=== PATIENT | male | born 1960 | race Caucasian/White ===

== ENCOUNTER 2023-03-11 23:18 | Inpatient (IN) | payer OTHER ==
[2023-03-12] MEDS ORDERED: Acetaminophen 325 MG TAB PO PRN (00:57)
[2023-03-12] MEDS ORDERED: Sodium Chloride 0.9% 1,000 ML IV SCH (01:00)
[2023-03-12 01:01] VITALS: BMI 22.6
[2023-03-12] MEDS ORDERED: Promethazine HCl 25 MG/ML VIAL IM PRN ×2 (01:18→23:42)
[2023-03-12] MEDS ORDERED: Benzocaine 20% Spray 60 ML CAN PO SCH (01:30)
[2023-03-12] MEDS: Nicotine 14 MG PATCH TD SCH ×2 (01:59)
[2023-03-12] MEDS: Ketorolac Tromethamine 30 MG/ML VIAL IVP PRN ×2 (01:59→14:42)
[2023-03-12] MEDS: Lactated Ringer's 1,000 ML IV SCH ×3 (01:59→18:08)
[2023-03-12] MEDS ORDERED: Morphine 2 MG/ML VIAL SLOW IVP SCH (03:00)
[2023-03-12 06:35] LABS: #Neutrophils 7.3 thou/uL (1.40-6.50); %Basophils 0.2 % (0.0-1.0); %Eosinophils 0.3 % (0.0-10.0); %Lymphocytes 17.4 % (21.0-51.0); %Monocytes 9.7 % (0.0-10.0); %Neutrophils 72.1 % (42.0-75.0); Hemoglobin 13.7 g/dL (14.0-18.0); Mean Corpuscular HGB CONC 33.7 g/dL (32.0-36.0); Mean Corpuscular Volume 88.8 fl (78.0-98.0); Mean Platelet Volume 9.7 fL (7.4-10.4); Platelet Count 211 10x3/uL (130-400); RBC Distribution Width 13.9 % (11.5-14.5); Red Blood Cell (RBC) Count 4.57 mill/uL (4.70-6.10); White Blood Cell (WBC) Count 10.1 10x3/uL (4.8-10.8)
[2023-03-12 07:31] LABS: ALT (SGPT) 9 U/L (8-55); AST (SGOT) 12 U/L (5-34); Albumin 3.9 g/dL (3.4-4.8); Alkaline Phosphatase 57 U/L (40-110); Anion Gap 15 mmol/L (10-20); BUN (Urea Nitrogen) 20 mg/dL (8.4-25.7); Bilirubin, Total 0.6 mg/dL (0.2-1.2); Calc. Creatinine Clearance 90 mL/min (70-130); Calcium 9.2 mg/dL (7.8-10.44); Carbon Dioxide 23 mmol/L (23-31); Chloride 104 mmol/L (98-107); Estimated GFR 88; Globulin 2.1 g/dL (2.4-3.5); Glucose 92 mg/dL (80-115); HIV (1/2) Antibody/Antigen Non-Reactive (NonReactive); HIV 1/2 INDEX 0.14 S/CO (<1.00); Hep C IgG Ab Non-Reactive S/CO (NonReactive); Hep C Index 0.07 S/CO (0-0.79); Potassium 3.9 mmol/L (3.5-5.1); Sodium 138 mmol/L (136-145)
[2023-03-12] MEDS: Pantoprazole 40 MG VIAL IVP SCH (09:01)
[2023-03-12] MEDS ORDERED: GoLYTELY 4,000 ml Bottle PO SCH (12:00)
[2023-03-12] MEDS ORDERED: fentaNYL 50 mcg/mL 1 mL Vial SLOW IVP SCH (18:00)
[2023-03-12] MEDS ORDERED: Morphine 2 MG/ML VIAL SLOW IVP PRN (20:57)
[2023-03-12] MEDS ORDERED: Piperacillin/Tazobactam 3.375 GM VIAL ONE (20:58)
[2023-03-12] MEDS ORDERED: Sodium Chloride 0.9% 100 ML ONE (20:59)
[2023-03-12] MEDS ORDERED: Fentanyl 250 MCG/5 ML VIAL ONE (21:03)
[2023-03-12] MEDS ORDERED: SUGAMMADEX SODIUM 200 MG/2 ML VIAL ONE (21:04)
[2023-03-12] MEDS ORDERED: Phenylephrine 10 MG/ML VIAL ONE (21:04)
[2023-03-12] MEDS ORDERED: Rocuronium Bromide 10 MG/ML (10ML VIAL) ONE (21:09)
[2023-03-12] MEDS ORDERED: Lidocaine 1% PF 5 ML VIAL ONE (21:09)
[2023-03-12] MEDS ORDERED: Dexamethasone 20 MG/5 ML VIAL ONE (21:09)
[2023-03-12] MEDS ORDERED: PROPOFOL 200 MG/20 ML VIAL ONE (21:09)
[2023-03-12] MEDS ORDERED: PHENYLEPHRINE-NS 100 MCG/ML 10 ML SYRINGE ONE (21:09)
[2023-03-12] MEDS ORDERED: Ondansetron PF 4 MG/2 ML Vial ONE (21:09)
[2023-03-12] MEDS ORDERED: HYDROmorphone 2 MG/ML VIAL SLOW IVP PRN (23:42)
[2023-03-12] MEDS ORDERED: PACU-Morphine 4MG/ML VIAL SLOW IVP PRN (23:42)
[2023-03-12] MEDS ORDERED: Ondansetron HCl/PF 4 MG/2 ML Vial IVP PRN (23:42)
[2023-03-12] MEDS ORDERED: fentaNYL 50 mcg/mL 1 mL Vial ONE (23:44)
[2023-03-12] MEDS ORDERED: Communication Order-Pharmacy FS SCH (23:45)
[2023-03-12] MEDS ORDERED: diphenhydrAMINE 50 MG/ML VIAL IM PRN (23:46)
[2023-03-12] MEDS ORDERED: Naloxone HCl 0.4 mg/ml Vial IV PRN (23:46)
[2023-03-12] MEDS ORDERED: diphenhydrAMINE 50 MG/ML VIAL IVP PRN (23:46)
[2023-03-12] MEDS ORDERED: diphenhydrAMINE 25 MG CAP PO PRN (23:46)
[2023-03-13] MEDS ORDERED: fentaNYL 50 mcg/mL 1 mL Vial ONE (00:06)
[2023-03-13] MEDS ORDERED: HYDROmorphone 0.5 MG/0.5 ML SYRINGE ONE ×3 (00:20→01:02)
[2023-03-13] MEDS: Nicotine 14 MG PATCH TD SCH (01:53)
[2023-03-13] MEDS: Lactated Ringer's 1,000 ML IV SCH ×5 (04:43→20:43)
[2023-03-13 08:22] LABS: #Neutrophils 12.7 thou/uL (1.40-6.50); %Basophils 0.1 % (0.0-1.0); %Lymphocytes 4.2 % (21.0-51.0); %Monocytes 7.1 % (0.0-10.0); %Neutrophils 88.3 % (42.0-75.0); Hemoglobin 13.6 g/dL (14.0-18.0); Mean Corpuscular HGB CONC 33.9 g/dL (32.0-36.0); Mean Corpuscular Hemoglobin 30.7 pg (27.0-31.0); Mean Corpuscular Volume 90.5 fl (78.0-98.0); Mean Platelet Volume 10.5 fL (7.4-10.4); Platelet Count 229 10x3/uL (130-400); Red Blood Cell (RBC) Count 4.43 mill/uL (4.70-6.10); White Blood Cell (WBC) Count 14.4 10x3/uL (4.8-10.8)
[2023-03-13] MEDS ORDERED: Lactated Ringer's 1,000 ML IV SCH (08:45)
[2023-03-13 08:49] LABS: ALT (SGPT) 8 U/L (8-55); AST (SGOT) 16 U/L (5-34); Albumin 3.5 g/dL (3.4-4.8); Alkaline Phosphatase 47 U/L (40-110); Anion Gap 19 mmol/L (10-20); BUN (Urea Nitrogen) 20 mg/dL (8.4-25.7); Bilirubin, Total 0.5 mg/dL (0.2-1.2); Calc. Creatinine Clearance 104 mL/min (70-130); Calcium 8.7 mg/dL (7.8-10.44); Carbon Dioxide 22 mmol/L (23-31); Chloride 104 mmol/L (98-107); Estimated GFR 98; Globulin 1.9 g/dL (2.4-3.5); Glucose 114 mg/dL (80-115); Potassium 4.3 mmol/L (3.5-5.1); Protein, Total 5.4 g/dL (5.8-8.1); Sodium 141 mmol/L (136-145)
[2023-03-13] MEDS: Pantoprazole 40 MG VIAL IVP SCH (09:58)
[2023-03-13] MEDS: HYDROmorphone 10 mg/100 ml CADD IVPB PRN (23:27)
[2023-03-14] MEDS: Nicotine 14 MG PATCH TD SCH (02:33)
[2023-03-14 06:11] LABS: #Neutrophils 8.9 thou/uL (1.40-6.50); %Basophils 0.2 % (0.0-1.0); %Eosinophils 0.2 % (0.0-10.0); %Lymphocytes 9.6 % (21.0-51.0); %Monocytes 8.9 % (0.0-10.0); %Neutrophils 80.6 % (42.0-75.0); Hemoglobin 13.8 g/dL (14.0-18.0); Mean Corpuscular HGB CONC 32.5 g/dL (32.0-36.0); Mean Corpuscular Hemoglobin 30.1 pg (27.0-31.0); Mean Corpuscular Volume 92.6 fl (78.0-98.0); Mean Platelet Volume 10.1 fL (7.4-10.4); Platelet Count 204 10x3/uL (130-400); RBC Distribution Width 14.3 % (11.5-14.5); Red Blood Cell (RBC) Count 4.59 mill/uL (4.70-6.10); White Blood Cell (WBC) Count 11.1 10x3/uL (4.8-10.8)
[2023-03-14 06:37] LABS: ALT (SGPT) 12 U/L (8-55); AST (SGOT) 25 U/L (5-34); Albumin 3.5 g/dL (3.4-4.8); Alkaline Phosphatase 46 U/L (40-110); Anion Gap 13 mmol/L (10-20); BUN (Urea Nitrogen) 15 mg/dL (8.4-25.7); Bilirubin, Total 0.6 mg/dL (0.2-1.2); Calc. Creatinine Clearance 111 mL/min (70-130); Carbon Dioxide 27 mmol/L (23-31); Chloride 103 mmol/L (98-107); Estimated GFR 100; Globulin 2.3 g/dL (2.4-3.5); Glucose 127 mg/dL (80-115); Potassium 4.4 mmol/L (3.5-5.1); Protein, Total 5.8 g/dL (5.8-8.1); Sodium 139 mmol/L (136-145)
[2023-03-14] MEDS: Pantoprazole 40 MG VIAL IVP SCH (08:42)
[2023-03-14] MEDS ORDERED: Bisacodyl 10 MG SUPP PR PRN (10:38)
[2023-03-14] MEDS ORDERED: Furosemide 40 MG/4 ML VIAL SLOW IVP SCH (11:30)
[2023-03-14 12:05] LABS: Magnesium 1.9 mg/dL (1.6-2.6); Phosphorus 2.1 mg/dL (2.3-4.7)
[2023-03-14] MEDS ORDERED: Sodium Phosphate 30 MMOL in Sodium Chloride 0.9% 250 ML 250 ML IVPB SCH (12:30)
[2023-03-14] MEDS ORDERED: Magnesium 2 GM/50 ML(in water) 2 GM in Premix Bag 1 BAG IVPB SCH (12:30)
[2023-03-14] MEDS: HYDROmorphone 10 mg/100 ml CADD IVPB PRN (20:35)
[2023-03-15] MEDS: Nicotine 14 MG PATCH TD SCH (00:50)
[2023-03-15 06:22] LABS: #Monocytes 0.9 thou/uL (0.11-0.59); #Neutrophils 11.5 thou/uL (1.40-6.50); %Basophils 0.2 % (0.0-1.0); %Eosinophils 0.2 % (0.0-10.0); %Lymphocytes 4.7 % (21.0-51.0); %Monocytes 7.1 % (0.0-10.0); %Neutrophils 87.5 % (42.0-75.0); Hemoglobin 14.8 g/dL (14.0-18.0); Mean Corpuscular HGB CONC 32.7 g/dL (32.0-36.0); Mean Corpuscular Hemoglobin 30.1 pg (27.0-31.0); Mean Corpuscular Volume 92.3 fl (78.0-98.0); Platelet Count 244 10x3/uL (130-400); RBC Distribution Width 14.1 % (11.5-14.5); Red Blood Cell (RBC) Count 4.91 mill/uL (4.70-6.10); White Blood Cell (WBC) Count 13.1 10x3/uL (4.8-10.8)
[2023-03-15 06:47] LABS: ALT (SGPT) 14 U/L (8-55); AST (SGOT) 23 U/L (5-34); Albumin 3.5 g/dL (3.4-4.8); Alkaline Phosphatase 54 U/L (40-110); Anion Gap 19 mmol/L (10-20); BUN (Urea Nitrogen) 15 mg/dL (8.4-25.7); Bilirubin, Total 0.5 mg/dL (0.2-1.2); Calc. Creatinine Clearance 93 mL/min (70-130); Carbon Dioxide 25 mmol/L (23-31); Chloride 97 mmol/L (98-107); Estimated GFR 92; Globulin 2.8 g/dL (2.4-3.5); Glucose 127 mg/dL (80-115); Potassium 4.2 mmol/L (3.5-5.1); Protein, Total 6.3 g/dL (5.8-8.1); Sodium 137 mmol/L (136-145)
[2023-03-15] MEDS: Pantoprazole 40 MG VIAL IVP SCH (08:41)
[2023-03-15] MEDS: D5 1/2 NS w/20 mEq KCL 1,000 ML IV SCH (13:13)
[2023-03-15] MEDS: HYDROmorphone 10 mg/100 ml CADD IVPB PRN (22:22)
[2023-03-16] MEDS: D5 1/2 NS w/20 mEq KCL 1,000 ML IV SCH ×2 (03:37→09:03)
[2023-03-16] MEDS: Nicotine 14 MG PATCH TD SCH ×2 (03:38→23:07)
[2023-03-16 06:52] LABS: #Eosinphils 0.1 thou/uL (0.0-0.7); #Monocytes 0.8 thou/uL (0.11-0.59); #Neutrophils 8.8 thou/uL (1.40-6.50); %Basophils 0.1 % (0.0-1.0); %Eosinophils 1.1 % (0.0-10.0); %Lymphocytes 7.2 % (21.0-51.0); %Monocytes 7.4 % (0.0-10.0); %Neutrophils 83.9 % (42.0-75.0); Hemoglobin 12.6 g/dL (14.0-18.0); Mean Corpuscular Hemoglobin 30.1 pg (27.0-31.0); Mean Corpuscular Volume 91.4 fl (78.0-98.0); Mean Platelet Volume 10.3 fL (7.4-10.4); Platelet Count 238 10x3/uL (130-400); Red Blood Cell (RBC) Count 4.18 mill/uL (4.70-6.10); White Blood Cell (WBC) Count 10.5 10x3/uL (4.8-10.8)
[2023-03-16 07:19] LABS: ALT (SGPT) 11 U/L (8-55); AST (SGOT) 13 U/L (5-34); Albumin 3.1 g/dL (3.4-4.8); Alkaline Phosphatase 47 U/L (40-110); Anion Gap 15 mmol/L (10-20); BUN (Urea Nitrogen) 16 mg/dL (8.4-25.7); Bilirubin, Total 0.5 mg/dL (0.2-1.2); Calc. Creatinine Clearance 115 mL/min (70-130); Calcium 8.8 mg/dL (7.8-10.44); Carbon Dioxide 28 mmol/L (23-31); Chloride 98 mmol/L (98-107); Estimated GFR 101; Globulin 2.3 g/dL (2.4-3.5); Glucose 128 mg/dL (80-115); Potassium 4.1 mmol/L (3.5-5.1); Protein, Total 5.4 g/dL (5.8-8.1); Sodium 137 mmol/L (136-145)
[2023-03-16] MEDS: Pantoprazole 40 MG VIAL IVP SCH (08:47)
[2023-03-16] MEDS: Ondansetron PF 4 MG/2 ML Vial IVP PRN (08:54)
[2023-03-16] MEDS: HYDROmorphone 10 mg/100 ml CADD IVPB PRN (22:51)
[2023-03-17] MEDS: Ondansetron PF 4 MG/2 ML Vial IVP PRN ×3 (00:16→14:44)
[2023-03-17] MEDS: D5 1/2 NS w/20 mEq KCL 1,000 ML IV SCH ×3 (03:00→19:10)
[2023-03-17 06:17] LABS: #Eosinphils 0.4 thou/uL (0.0-0.7); #Monocytes 0.8 thou/uL (0.11-0.59); #Neutrophils 5.3 thou/uL (1.40-6.50); %Basophils 0.1 % (0.0-1.0); %Lymphocytes 13.1 % (21.0-51.0); %Monocytes 10.6 % (0.0-10.0); %Neutrophils 70.9 % (42.0-75.0); Hemoglobin 11.6 g/dL (14.0-18.0); Mean Corpuscular HGB CONC 32.9 g/dL (32.0-36.0); Mean Corpuscular Hemoglobin 30.4 pg (27.0-31.0); Mean Corpuscular Volume 92.7 fl (78.0-98.0); Mean Platelet Volume 9.4 fL (7.4-10.4); Platelet Count 227 10x3/uL (130-400); RBC Distribution Width 14.3 % (11.5-14.5); Red Blood Cell (RBC) Count 3.81 mill/uL (4.70-6.10); White Blood Cell (WBC) Count 7.5 10x3/uL (4.8-10.8)
[2023-03-17 06:43] LABS: ALT (SGPT) 11 U/L (8-55); AST (SGOT) 10 U/L (5-34); Albumin 3.1 g/dL (3.4-4.8); Alkaline Phosphatase 41 U/L (40-110); Anion Gap 14 mmol/L (10-20); BUN (Urea Nitrogen) 13 mg/dL (8.4-25.7); Bilirubin, Total 0.4 mg/dL (0.2-1.2); Calc. Creatinine Clearance 114 mL/min (70-130); Carbon Dioxide 28 mmol/L (23-31); Chloride 98 mmol/L (98-107); Estimated GFR 100; Globulin 2.4 g/dL (2.4-3.5); Glucose 109 mg/dL (80-115); Potassium 3.9 mmol/L (3.5-5.1); Protein, Total 5.5 g/dL (5.8-8.1); Sodium 136 mmol/L (136-145)
[2023-03-17] MEDS: Pantoprazole 40 MG VIAL IVP SCH (08:11)
[2023-03-17] MEDS: Ketorolac Tromethamine 30 MG/ML VIAL IVP SCH ×2 (12:05→18:44)
[2023-03-17] MEDS: HYDROmorphone 10 mg/100 ml CADD IVPB PRN (19:09)
[2023-03-18] MEDS: Ketorolac Tromethamine 30 MG/ML VIAL IVP SCH ×5 (00:25→22:25)
[2023-03-18] MEDS: Nicotine 14 MG PATCH TD SCH (04:15)
[2023-03-18] MEDS: D5 1/2 NS w/20 mEq KCL 1,000 ML IV SCH ×2 (04:20→17:22)
[2023-03-18 06:20] LABS: #Eosinphils 0.3 thou/uL (0.0-0.7); #Monocytes 0.8 thou/uL (0.11-0.59); #Neutrophils 4.5 thou/uL (1.40-6.50); %Basophils 0.3 % (0.0-1.0); %Eosinophils 4.3 % (0.0-10.0); %Lymphocytes 12.9 % (21.0-51.0); %Monocytes 12.2 % (0.0-10.0); %Neutrophils 69.8 % (42.0-75.0); Hemoglobin 10.9 g/dL (14.0-18.0); Mean Corpuscular HGB CONC 32.3 g/dL (32.0-36.0); Mean Corpuscular Hemoglobin 29.6 pg (27.0-31.0); Mean Corpuscular Volume 91.6 fl (78.0-98.0); Platelet Count 233 10x3/uL (130-400); Red Blood Cell (RBC) Count 3.68 mill/uL (4.70-6.10); White Blood Cell (WBC) Count 6.5 10x3/uL (4.8-10.8)
[2023-03-18 06:45] LABS: ALT (SGPT) 10 U/L (8-55); AST (SGOT) 11 U/L (5-34); Albumin 2.9 g/dL (3.4-4.8); Alkaline Phosphatase 39 U/L (40-110); Anion Gap 12 mmol/L (10-20); BUN (Urea Nitrogen) 16 mg/dL (8.4-25.7); Bilirubin, Total 0.5 mg/dL (0.2-1.2); Calc. Creatinine Clearance 109 mL/min (70-130); Calcium 8.9 mg/dL (7.8-10.44); Carbon Dioxide 29 mmol/L (23-31); Chloride 100 mmol/L (98-107); Estimated GFR 99; Globulin 2.1 g/dL (2.4-3.5); Glucose 101 mg/dL (80-115); Potassium 4.2 mmol/L (3.5-5.1); Sodium 137 mmol/L (136-145)
[2023-03-18] MEDS: Pantoprazole 40 MG VIAL IVP SCH (09:06)
[2023-03-18] MEDS ORDERED: PHOS-NAK 1 PKT PACK PO SCH (10:30)
[2023-03-18] MEDS: Acetaminophen 500 MG TAB PO SCH ×2 (13:00→18:30)
[2023-03-18] MEDS: traMADol HCl 50 MG TAB PO SCH ×2 (13:01→18:30)
[2023-03-18] MEDS: PHOS-NAK 1 PKT PACK PO SCH ×2 (18:26→22:13)
[2023-03-18] MEDS: Melatonin 3 MG TAB PO SCH (22:13)
[2023-03-18] MEDS: traMADol HCl 50 MG TAB PO PRN (22:14)
[2023-03-19] MEDS: Nicotine 14 MG PATCH TD SCH (01:47)
[2023-03-19] MEDS: Ketorolac Tromethamine 30 MG/ML VIAL IVP SCH ×4 (03:39→22:30)
[2023-03-19] MEDS: Acetaminophen 500 MG TAB PO SCH ×4 (03:39→17:00)
[2023-03-19] MEDS: traMADol HCl 50 MG TAB PO SCH ×2 (03:39)
[2023-03-19] MEDS: traMADol HCl 50 MG TAB PO PRN ×2 (03:40→09:04)
[2023-03-19] MEDS: Pantoprazole 40 MG VIAL IVP SCH (09:05)
[2023-03-19] MEDS: Polyethylene Glycol 3350 17 GM Packet PO SCH (09:06)
[2023-03-19] MEDS ORDERED: Iopamidol-370 76% 500 ML MDV (1 ML CHARGE) ONE (15:27)
[2023-03-19] MEDS: Melatonin 3 MG TAB PO SCH (20:35)
[2023-03-19] MEDS: Ondansetron PF 4 MG/2 ML Vial IVP PRN (22:20)
[2023-03-20] MEDS: Acetaminophen 500 MG TAB PO SCH ×4 (00:13→17:53)
[2023-03-20] MEDS: traMADol HCl 50 MG TAB PO PRN (02:43)
[2023-03-20] MEDS: Nicotine 14 MG PATCH TD SCH (02:44)
[2023-03-20] MEDS ORDERED: Dicyclomine 20 MG TAB PO SCH (04:23)
[2023-03-20] MEDS: Ketorolac Tromethamine 30 MG/ML VIAL IVP SCH ×2 (05:35→12:47)
[2023-03-20] MEDS: Ondansetron PF 4 MG/2 ML Vial IVP PRN ×2 (05:38→21:34)
[2023-03-20] MEDS: Pantoprazole 40 MG VIAL IVP SCH (09:04)
[2023-03-20] MEDS: Polyethylene Glycol 3350 17 GM Packet PO SCH (09:04)
[2023-03-20] MEDS: D5 1/2 NS w/20 mEq KCL 1,000 ML IV SCH ×2 (09:04→21:23)
[2023-03-20] MEDS ORDERED: Benzocaine 20% Spray 60 ML CAN PO SCH (09:06)
[2023-03-20] MEDS ORDERED: Lidocaine Jelly 2% Urojet 10 ML I-URETHRAL SCH (09:15)
[2023-03-20] MEDS ORDERED: Midazolam HCl 2 mg/2 ml Vial SLOW IVP PRN (09:48)
[2023-03-20 10:48] LABS: Hemoglobin 13.3 g/dL (14.0-18.0); Mean Corpuscular HGB CONC 32.7 g/dL (32.0-36.0); Mean Corpuscular Hemoglobin 29.8 pg (27.0-31.0); Mean Corpuscular Volume 91.3 fl (78.0-98.0); Mean Platelet Volume 9.7 fL (7.4-10.4); Platelet Count 379 10x3/uL (130-400); RBC Distribution Width 13.9 % (11.5-14.5); Red Blood Cell (RBC) Count 4.46 mill/uL (4.70-6.10); White Blood Cell (WBC) Count 8.4 10x3/uL (4.8-10.8)
[2023-03-20 10:53] LABS: Delete Auto Diff?? YES; Manual Diff?? YES
[2023-03-20 11:14] LABS: ALT (SGPT) 26 U/L (8-55); AST (SGOT) 19 U/L (5-34); Albumin 3.4 g/dL (3.4-4.8); Alkaline Phosphatase 72 U/L (40-110); Anion Gap 21 mmol/L (10-20); BUN (Urea Nitrogen) 22 mg/dL (8.4-25.7); Bilirubin, Total 0.6 mg/dL (0.2-1.2); Calc. Creatinine Clearance 102 mL/min (70-130); Calcium 9.2 mg/dL (7.8-10.44); Carbon Dioxide 21 mmol/L (23-31); Chloride 98 mmol/L (98-107); Estimated GFR 97; Globulin 2.8 g/dL (2.4-3.5); Glucose 105 mg/dL (80-115); Potassium 4.3 mmol/L (3.5-5.1); Protein, Total 6.2 g/dL (5.8-8.1); Sodium 136 mmol/L (136-145)
[2023-03-20 12:09] LABS: Band 55 % (5-11); CellaVision Operator ID LAB.GE; Large Platelets 5.8 % (0-5); Lymphocytes 6 % (21-51); Metamyelocyte 6 % (0-0); Monocytes 9 % (0-10); Neutrophil 20 % (42-75); Platelet Adequacy Comment Platelets Normal; Polychromasia SLIGHT = 2-3 cells HPF (0-2); Reactive Lymphocytes 3 % (0-10); Total Cell Count 103
[2023-03-20] MEDS ORDERED: Ketorolac Tromethamine 30 MG/ML VIAL IVP PRN (17:29)
[2023-03-20] MEDS: Melatonin 3 MG TAB PO SCH (21:23)
[2023-03-21] MEDS: Morphine 2 MG/ML VIAL SLOW IVP PRN (01:53)
[2023-03-21] MEDS ORDERED: Promethazine HCl 25 MG in Sodium Chloride 0.9% 50 ML IVPB PRN (02:12)
[2023-03-21] MEDS: Nicotine 14 MG PATCH TD SCH (02:17)
[2023-03-21] MEDS: Acetaminophen 500 MG TAB PO SCH ×5 (02:17→23:55)
[2023-03-21] MEDS: Polyethylene Glycol 3350 17 GM Packet PO SCH (08:20)
[2023-03-21] MEDS: DRY MOUTH SPRAY PO SCH ×3 (08:21→18:03)
[2023-03-21] MEDS: Tamsulosin HCl 0.4 MG CAP PO SCH (08:22)
[2023-03-21] MEDS: Pantoprazole 40 MG VIAL IVP SCH (08:22)
[2023-03-21] MEDS: D5 1/2 NS w/20 mEq KCL 1,000 ML IV SCH ×2 (08:22→12:40)
[2023-03-21] MEDS: Morphine 4 MG/ML VIAL SLOW IVP PRN ×3 (08:23→18:03)
[2023-03-21 08:33] LABS: Hemoglobin 12.6 g/dL (14.0-18.0); Mean Corpuscular HGB CONC 34.8 g/dL (32.0-36.0); Mean Corpuscular Hemoglobin 30.2 pg (27.0-31.0); Mean Platelet Volume 9.8 fL (7.4-10.4); Platelet Count 323 10x3/uL (130-400); RBC Distribution Width 13.9 % (11.5-14.5); Red Blood Cell (RBC) Count 4.17 mill/uL (4.70-6.10); White Blood Cell (WBC) Count 7.6 10x3/uL (4.8-10.8)
[2023-03-21 08:35] LABS: Delete Auto Diff?? YES; Manual Diff?? YES; Mean Corpuscular Volume 86.8 fl (78.0-98.0)
[2023-03-21 08:51] LABS: Anion Gap 15 mmol/L (10-20); BUN (Urea Nitrogen) 21 mg/dL (8.4-25.7); Calc. Creatinine Clearance 105 mL/min (70-130); Calcium 8.5 mg/dL (7.8-10.44); Carbon Dioxide 27 mmol/L (23-31); Chloride 97 mmol/L (98-107); Estimated GFR 98; Glucose 124 mg/dL (80-115); Magnesium 1.7 mg/dL (1.6-2.6); Phosphorus 2.2 mg/dL (2.3-4.7); Sodium 135 mmol/L (136-145)
[2023-03-21 09:04] LABS: Band 54 % (5-11); CellaVision Operator ID LAB.GE; Dohle Bodies SLIGHT; Eosinophils 4 % (0-10); Lymphocytes 8 % (21-51); Macrocytosis SLIGHT = 6-15 cells HPF (0-5); Metamyelocyte 1 % (0-0); Monocytes 8 % (0-10); Neutrophil 23 % (42-75); Platelet Adequacy Comment Platelets Normal; Polychromasia SLIGHT = 2-3 cells HPF (0-2); Reactive Lymphocytes 2 % (0-10); Total Cell Count 100; Vacuoles SLIGHT
[2023-03-21] MEDS ORDERED: Potassium Phosphate 9 MMOL in Sodium Chloride 0.9% 100 ML IVPB SCH (10:00)
[2023-03-21] MEDS ORDERED: Potassium Phosphate 30 MMOL in Sodium Chloride 0.9% 250 ML 250 ML IVPB SCH (19:30)
[2023-03-21] MEDS ORDERED: Magnesium 2 GM/50 ML(in water) 2 GM in Premix Bag 1 BAG IVPB SCH (19:30)
[2023-03-21] MEDS: Melatonin 3 MG TAB PO SCH (21:15)
[2023-03-22] MEDS: D5 1/2 NS w/20 mEq KCL 1,000 ML IV SCH ×3 (00:05→22:18)
[2023-03-22] MEDS: Morphine 4 MG/ML VIAL SLOW IVP PRN ×2 (03:23→20:50)
[2023-03-22] MEDS: Nicotine 14 MG PATCH TD SCH (05:21)
[2023-03-22 06:13] LABS: #Basophils 0.1 thou/uL (0.0-0.2); #Eosinphils 0.2 thou/uL (0.0-0.7); #Monocytes 1.1 thou/uL (0.11-0.59); #Neutrophils 7.2 thou/uL (1.40-6.50); %Basophils 0.5 % (0.0-1.0); %Eosinophils 2.1 % (0.0-10.0); %Lymphocytes 10.1 % (21.0-51.0); %Monocytes 11.6 % (0.0-10.0); %Neutrophils 74.8 % (42.0-75.0); Hemoglobin 12.3 g/dL (14.0-18.0); Mean Corpuscular HGB CONC 32.8 g/dL (32.0-36.0); Mean Corpuscular Hemoglobin 29.4 pg (27.0-31.0); Mean Platelet Volume 9.7 fL (7.4-10.4); Platelet Count 349 10x3/uL (130-400); RBC Distribution Width 14.1 % (11.5-14.5); Red Blood Cell (RBC) Count 4.19 mill/uL (4.70-6.10); White Blood Cell (WBC) Count 9.7 10x3/uL (4.8-10.8)
[2023-03-22] MEDS: Ondansetron PF 4 MG/2 ML Vial IVP PRN (06:19)
[2023-03-22] MEDS: DRY MOUTH SPRAY PO SCH ×5 (06:21→20:46)
[2023-03-22 06:27] LABS: Manual Diff?? YES; Mean Corpuscular Volume 89.5 fl (78.0-98.0)
[2023-03-22 06:40] LABS: Anion Gap 13 mmol/L (10-20); BUN (Urea Nitrogen) 12 mg/dL (8.4-25.7); Calc. Creatinine Clearance 114 mL/min (70-130); Calcium 8.4 mg/dL (7.8-10.44); Carbon Dioxide 28 mmol/L (23-31); Chloride 100 mmol/L (98-107); Estimated GFR 100; Glucose 103 mg/dL (80-115); Magnesium 2.3 mg/dL (1.6-2.6); Phosphorus 3.4 mg/dL (2.3-4.7); Potassium 4.3 mmol/L (3.5-5.1); Sodium 137 mmol/L (136-145)
[2023-03-22] MEDS: Acetaminophen 500 MG TAB PO SCH ×3 (07:49→12:14)
[2023-03-22 08:09] LABS: Anisocytosis SLIGHT = 6-15 cells HPF (0-5); Burr Cells SLIGHT = 2-5 cells HPF (0-1); CellaVision Operator ID LAB.NR; Eosinophils 4 % (0-10); Lymphocytes 8 % (21-51); Monocytes 7 % (0-10); Neutrophil 81 % (42-75); Platelet Adequacy Comment Platelets Normal; Polychromasia SLIGHT = 2-3 cells HPF (0-2); Smudge Cells 2.9 %; Total Cell Count 102
[2023-03-22] MEDS ORDERED: Sodium Chloride 0.9% 1,000 ML IV SCH (08:45)
[2023-03-22] MEDS: Pantoprazole 40 MG VIAL IVP SCH (09:15)
[2023-03-22] MEDS: Tamsulosin HCl 0.4 MG CAP PO SCH (09:15)
[2023-03-22] MEDS: Polyethylene Glycol 3350 17 GM Packet PO SCH (09:36)
[2023-03-22] MEDS ORDERED: Melatonin 3 MG TAB PO PRN (16:36)
[2023-03-22] MEDS ORDERED: Dextrose 5% in Water 1,000 ML IV PRN (16:37)
[2023-03-22] MEDS ORDERED: HumaLOG 300 UNITS/3 ML VIAL SC PRN (16:37)
[2023-03-22] MEDS ORDERED: Glucagon 1 MG/ML KIT IM PRN (16:37)
[2023-03-22] MEDS ORDERED: Dextrose 50% Abboject 50 ML SYRINGE SLOW IVP PRN (16:37)
[2023-03-23] MEDS: Morphine 2 MG/ML VIAL SLOW IVP PRN ×2 (01:01→21:02)
[2023-03-23] MEDS: Nicotine 14 MG PATCH TD SCH (01:20)
[2023-03-23] MEDS: Morphine 4 MG/ML VIAL SLOW IVP PRN ×2 (05:13→13:22)
[2023-03-23] MEDS ORDERED: Tamsulosin HCl 0.4 MG CAP PO SCH (09:00)
[2023-03-23] MEDS: Pantoprazole 40 MG VIAL IVP SCH (10:10)
[2023-03-23] MEDS: DRY MOUTH SPRAY PO SCH ×4 (10:10→20:54)
[2023-03-23] MEDS ORDERED: [UNRECOGNIZED DRUG - OTHER] IV SCH (14:00)
[2023-03-23] MEDS ORDERED: MULTIVITAMINS IV SCH (14:00)
[2023-03-23] MEDS ORDERED: TRACE ELEMENT IV SCH (14:00)
[2023-03-23] MEDS: [UNRECOGNIZED DRUG - OTHER] IV SCH (14:30)
[2023-03-23] MEDS: Lactated Ringer's 500 ML IV SCH (14:30)
[2023-03-23] MEDS: TRACE ELEMENT IV SCH (14:30)
[2023-03-23] MEDS: MULTIVITAMINS IV SCH (14:30)
[2023-03-23] MEDS: D5 1/2 NS w/20 mEq KCL 1,000 ML IV SCH (21:00)
[2023-03-24] MEDS: Nicotine 14 MG PATCH TD SCH (00:39)
[2023-03-24] MEDS: Morphine 2 MG/ML VIAL SLOW IVP PRN ×3 (01:33→21:17)
[2023-03-24] MEDS: Morphine 4 MG/ML VIAL SLOW IVP PRN ×2 (06:10→10:41)
[2023-03-24 06:49] LABS: #Eosinphils 0.2 thou/uL (0.0-0.7); #Monocytes 1.1 thou/uL (0.11-0.59); %Basophils 0.4 % (0.0-1.0); %Eosinophils 1.8 % (0.0-10.0); %Lymphocytes 14.8 % (21.0-51.0); %Monocytes 9.6 % (0.0-10.0); %Neutrophils 71.2 % (42.0-75.0); Hemoglobin 12.4 g/dL (14.0-18.0); Mean Corpuscular HGB CONC 33.4 g/dL (32.0-36.0); Mean Corpuscular Hemoglobin 29.8 pg (27.0-31.0); Mean Corpuscular Volume 89.2 fl (78.0-98.0); Mean Platelet Volume 9.8 fL (7.4-10.4); Platelet Count 348 10x3/uL (130-400); RBC Distribution Width 13.9 % (11.5-14.5); Red Blood Cell (RBC) Count 4.16 mill/uL (4.70-6.10); White Blood Cell (WBC) Count 11.2 10x3/uL (4.8-10.8)
[2023-03-24 07:14] LABS: ALT (SGPT) 24 U/L (8-55); AST (SGOT) 17 U/L (5-34); Alkaline Phosphatase 55 U/L (40-110); Anion Gap 11 mmol/L (10-20); BUN (Urea Nitrogen) 10 mg/dL (8.4-25.7); Bilirubin, Total 0.3 mg/dL (0.2-1.2); Calc. Creatinine Clearance 127 mL/min (70-130); Calcium 8.3 mg/dL (7.8-10.44); Carbon Dioxide 27 mmol/L (23-31); Chloride 100 mmol/L (98-107); Estimated GFR 104; Globulin 2.3 g/dL (2.4-3.5); Glucose 113 mg/dL (80-115); Potassium 3.9 mmol/L (3.5-5.1); Protein, Total 5.3 g/dL (5.8-8.1); Sodium 134 mmol/L (136-145)
[2023-03-24 09:08] LABS: Magnesium 1.8 mg/dL (1.6-2.6); Phosphorus 3.2 mg/dL (2.3-4.7)
[2023-03-24] MEDS ORDERED: MD-Gastroview 120 ML BOT ONE (09:20)
[2023-03-24] MEDS ORDERED: Benzocaine 20% Spray 60 ML CAN PO SCH (11:00)
[2023-03-24] MEDS ORDERED: Benzocaine 20% Spray 60 ML CAN PO PRN (11:55)
[2023-03-24] MEDS ORDERED: TRACE ELEMENT IV SCH (14:00)
[2023-03-24] MEDS ORDERED: [UNRECOGNIZED DRUG - OTHER] IV SCH (14:00)
[2023-03-24] MEDS ORDERED: MULTIVITAMINS IV SCH (14:00)
[2023-03-24] MEDS: DRY MOUTH SPRAY PO SCH ×4 (15:41→21:17)
[2023-03-24] MEDS: Pantoprazole 40 MG VIAL IVP SCH (15:41)
[2023-03-24] MEDS: [UNRECOGNIZED DRUG - OTHER] IV SCH (16:04)
[2023-03-24] MEDS: MULTIVITAMINS IV SCH (16:04)
[2023-03-24] MEDS: TRACE ELEMENT IV SCH (16:04)
[2023-03-24] MEDS: Lactated Ringer's 500 ML IV SCH (19:40)
[2023-03-24] MEDS: Ondansetron PF 4 MG/2 ML Vial IVP PRN (21:17)
[2023-03-25] MEDS: Nicotine 14 MG PATCH TD SCH (01:14)
[2023-03-25] MEDS: Morphine 2 MG/ML VIAL SLOW IVP PRN ×4 (03:43→20:04)
[2023-03-25] MEDS: Ondansetron PF 4 MG/2 ML Vial IVP PRN ×3 (03:43→20:06)
[2023-03-25 05:08] LABS: #Eosinphils 0.2 thou/uL (0.0-0.7); #Monocytes 1.3 thou/uL (0.11-0.59); #Neutrophils 7.3 thou/uL (1.40-6.50); %Basophils 0.4 % (0.0-1.0); %Eosinophils 1.4 % (0.0-10.0); %Lymphocytes 15.7 % (21.0-51.0); %Monocytes 11.7 % (0.0-10.0); Mean Corpuscular HGB CONC 33.3 g/dL (32.0-36.0); Mean Corpuscular Hemoglobin 29.7 pg (27.0-31.0); Mean Corpuscular Volume 89.2 fl (78.0-98.0); Mean Platelet Volume 9.8 fL (7.4-10.4); Platelet Count 375 10x3/uL (130-400); RBC Distribution Width 13.9 % (11.5-14.5); Red Blood Cell (RBC) Count 4.37 mill/uL (4.70-6.10); White Blood Cell (WBC) Count 10.9 10x3/uL (4.8-10.8)
[2023-03-25 05:30] LABS: ALT (SGPT) 30 U/L (8-55); AST (SGOT) 23 U/L (5-34); Albumin 3.2 g/dL (3.4-4.8); Alkaline Phosphatase 60 U/L (40-110); Anion Gap 13 mmol/L (10-20); BUN (Urea Nitrogen) 16 mg/dL (8.4-25.7); Bilirubin, Total 0.2 mg/dL (0.2-1.2); Calc. Creatinine Clearance 115 mL/min (70-130); Calcium 8.8 mg/dL (7.8-10.44); Carbon Dioxide 31 mmol/L (23-31); Chloride 99 mmol/L (98-107); Estimated GFR 101; Globulin 2.7 g/dL (2.4-3.5); Glucose 104 mg/dL (80-115); Protein, Total 5.9 g/dL (5.8-8.1); Sodium 139 mmol/L (136-145)
[2023-03-25] MEDS ORDERED: Nicotine 14 MG PATCH TD PRN (08:18)
[2023-03-25] MEDS: Pantoprazole 40 MG VIAL IVP SCH (09:30)
[2023-03-25] MEDS: DRY MOUTH SPRAY PO SCH ×4 (11:10→20:01)
[2023-03-25] MEDS: Lactated Ringer's 500 ML IV SCH (11:11)
[2023-03-25] MEDS ORDERED: Morphine 2 MG/ML VIAL SLOW IVP SCH (12:00)
[2023-03-25] MEDS: MULTIVITAMINS IV SCH (14:17)
[2023-03-25] MEDS: [UNRECOGNIZED DRUG - OTHER] IV SCH (14:17)
[2023-03-25] MEDS: TRACE ELEMENT IV SCH (14:17)
[2023-03-26] MEDS: Morphine 2 MG/ML VIAL SLOW IVP PRN ×2 (02:05→22:02)
[2023-03-26] MEDS: Ondansetron PF 4 MG/2 ML Vial IVP PRN ×2 (02:05→19:49)
[2023-03-26 05:42] LABS: #Eosinphils 0.2 thou/uL (0.0-0.7); #Monocytes 1.1 thou/uL (0.11-0.59); #Neutrophils 7.1 thou/uL (1.40-6.50); %Basophils 0.4 % (0.0-1.0); %Eosinophils 1.6 % (0.0-10.0); %Lymphocytes 18.3 % (21.0-51.0); %Monocytes 10.2 % (0.0-10.0); %Neutrophils 67.1 % (42.0-75.0); Hemoglobin 12.7 g/dL (14.0-18.0); Mean Corpuscular HGB CONC 33.1 g/dL (32.0-36.0); Mean Corpuscular Hemoglobin 29.7 pg (27.0-31.0); Mean Corpuscular Volume 89.7 fl (78.0-98.0); Mean Platelet Volume 9.8 fL (7.4-10.4); Platelet Count 349 10x3/uL (130-400); RBC Distribution Width 13.9 % (11.5-14.5); Red Blood Cell (RBC) Count 4.28 mill/uL (4.70-6.10); White Blood Cell (WBC) Count 10.6 10x3/uL (4.8-10.8)
[2023-03-26 06:13] LABS: ALT (SGPT) 30 U/L (8-55); AST (SGOT) 24 U/L (5-34); Albumin 3.2 g/dL (3.4-4.8); Alkaline Phosphatase 60 U/L (40-110); Anion Gap 12 mmol/L (10-20); BUN (Urea Nitrogen) 19 mg/dL (8.4-25.7); Bilirubin, Total 0.4 mg/dL (0.2-1.2); Calc. Creatinine Clearance 114 mL/min (70-130); Calcium 8.8 mg/dL (7.8-10.44); Carbon Dioxide 30 mmol/L (23-31); Chloride 100 mmol/L (98-107); Estimated GFR 100; Globulin 2.6 g/dL (2.4-3.5); Glucose 92 mg/dL (80-115); Potassium 4.3 mmol/L (3.5-5.1); Protein, Total 5.8 g/dL (5.8-8.1); Sodium 138 mmol/L (136-145)
[2023-03-26] MEDS: Pantoprazole 40 MG VIAL IVP SCH (08:50)
[2023-03-26] MEDS: DRY MOUTH SPRAY PO SCH ×4 (08:51→19:55)
[2023-03-26] MEDS: MULTIVITAMINS IV SCH (14:14)
[2023-03-26] MEDS: TRACE ELEMENT IV SCH (14:14)
[2023-03-26] MEDS: [UNRECOGNIZED DRUG - OTHER] IV SCH (14:14)
[2023-03-26] MEDS: Lactated Ringer's 500 ML IV SCH (15:27)
[2023-03-27] MEDS: Morphine 2 MG/ML VIAL SLOW IVP PRN ×4 (01:50→21:46)
[2023-03-27] MEDS: Ondansetron PF 4 MG/2 ML Vial IVP PRN ×3 (01:50→21:57)
[2023-03-27 05:35] LABS: #Neutrophils 7.4 thou/uL (1.40-6.50); %Basophils 0.4 % (0.0-1.0); %Eosinophils 2.6 % (0.0-10.0); %Lymphocytes 12.9 % (21.0-51.0); %Monocytes 7.4 % (0.0-10.0); %Neutrophils 74.9 % (42.0-75.0); Hemoglobin 11.9 g/dL (14.0-18.0); Mean Corpuscular HGB CONC 32.5 g/dL (32.0-36.0); Mean Corpuscular Hemoglobin 29.2 pg (27.0-31.0); Mean Corpuscular Volume 89.7 fl (78.0-98.0); Mean Platelet Volume 9.7 fL (7.4-10.4); Platelet Count 337 10x3/uL (130-400); RBC Distribution Width 13.9 % (11.5-14.5); Red Blood Cell (RBC) Count 4.08 mill/uL (4.70-6.10); White Blood Cell (WBC) Count 9.9 10x3/uL (4.8-10.8)
[2023-03-27 05:36] LABS: #Eosinphils 0.3 thou/uL (0.0-0.7); #Monocytes 0.7 thou/uL (0.11-0.59)
[2023-03-27] MEDS: Pantoprazole 40 MG VIAL IVP SCH (08:55)
[2023-03-27] MEDS: DRY MOUTH SPRAY PO SCH ×4 (08:55→21:49)
[2023-03-27 09:23] LABS: Anion Gap 10 mmol/L (10-20); BUN (Urea Nitrogen) 20 mg/dL (8.4-25.7); Bilirubin, Total 0.3 mg/dL (0.2-1.2); Calc. Creatinine Clearance 117 mL/min (70-130); Calcium 8.4 mg/dL (7.6-10.4); Carbon Dioxide 30 mmol/L (23-31); Chloride 99 mmol/L (98-107); Estimated GFR 101; Glucose 88 mg/dL (80-115); Potassium 4.4 mmol/L (3.5-5.1); Protein, Total 5.5 g/dL (5.8-8.1); Sodium 135 mmol/L (136-145)
[2023-03-27 09:24] LABS: ALT (SGPT) 56 U/L (8-55); AST (SGOT) 39 U/L (5-34); Alkaline Phosphatase 68 U/L (40-110); Globulin 2.5 g/dL (2.4-3.5)
[2023-03-27] MEDS: Lidocaine 4% Topical Sol 50 ML BOT TOP SCH (15:07)
[2023-03-27] MEDS: Lactated Ringer's 500 ML IV SCH (17:27)
[2023-03-28] MEDS: Morphine 2 MG/ML VIAL SLOW IVP PRN ×3 (02:41→16:45)
[2023-03-28] MEDS: Ondansetron PF 4 MG/2 ML Vial IVP PRN ×2 (09:34→16:48)
[2023-03-28] MEDS: Polyethylene Glycol 3350 17 GM Packet PO SCH (09:36)
[2023-03-28] MEDS: Senokot S 8.6-50 MG TAB PO SCH ×2 (09:36→21:42)
[2023-03-28] MEDS: DRY MOUTH SPRAY PO SCH ×4 (09:37→21:42)
[2023-03-28] MEDS ORDERED: Ibuprofen 600 MG TAB PO PRN (17:15)
[2023-03-28] MEDS ORDERED: traMADol HCl 50 MG TAB PO PRN (17:16)
[2023-03-28] MEDS: Acetaminophen 500 MG TAB PO SCH (18:17)
[2023-03-29] MEDS: Acetaminophen 500 MG TAB PO SCH ×2 (02:57→09:05)
[2023-03-29 06:52] LABS: ALT (SGPT) 77 U/L (8-55); AST (SGOT) 34 U/L (5-34); Albumin 2.9 g/dL (3.4-4.8); Alkaline Phosphatase 79 U/L (40-110); Anion Gap 9 mmol/L (10-20); BUN (Urea Nitrogen) 17 mg/dL (8.4-25.7); Bilirubin, Total 0.3 mg/dL (0.2-1.2); Calc. Creatinine Clearance 108 mL/min (70-130); Calcium 8.3 mg/dL (7.8-10.44); Carbon Dioxide 29 mmol/L (23-31); Chloride 101 mmol/L (98-107); Estimated GFR 99; Globulin 2.4 g/dL (2.4-3.5); Glucose 93 mg/dL (80-115); Protein, Total 5.3 g/dL (5.8-8.1); Sodium 135 mmol/L (136-145)
[2023-03-29] MEDS: Senokot S 8.6-50 MG TAB PO SCH (09:05)
[2023-03-29] MEDS: DRY MOUTH SPRAY PO SCH ×2 (09:06→15:16)
[2023-03-29] MEDS ORDERED: Morphine 4 MG/ML VIAL SLOW IVP SCH (10:30)
[2023-03-29] MEDS: Lidocaine 4% Topical Sol 50 ML BOT TOP SCH (10:35)
[2023-03-29] MEDS: Ondansetron PF 4 MG/2 ML Vial IVP PRN (10:37)
[2023-03-29 12:11] VITALS: BP 125/81; TEMP 98.2
[2023-03-29] MEDS: Polyethylene Glycol 3350 17 GM Packet PO SCH (15:16)
== END 2023-03-29 14:55 | disposition home or self-care (01) | DRG 329 ==
LOC: SURG A 03-12 00:47
PROVIDERS: ADMIT Emergency Medicine; ATTEND Emergency Medicine
PROC: 0D1M0Z4 Bypass Descending Colon to Cutaneous, Open Approach (ICD-10-PCS; principal; 2023-03-12)
PROC: 0DBN0ZZ Excision of Sigmoid Colon, Open Approach (ICD-10-PCS; 2023-03-12)
PROC: 0D9670Z Drainage of Stomach with Drainage Device, Via Natural or Artificial Opening (ICD-10-PCS; 2023-03-12)
PROC: 02HV33Z Insertion of Infusion Device into Superior Vena Cava, Percutaneous Approach (ICD-10-PCS; 2023-03-22)
PROC: 3E0436Z Introduction of Nutritional Substance into Central Vein, Percutaneous Approach (ICD-10-PCS; 2023-03-22)
DX: C18.7 Malignant neoplasm of sigmoid colon (principal); E43 Unspecified severe protein-calorie malnutrition; J81.1 Chronic pulmonary edema; K91.89 Other postprocedural complications and disorders of digestive system; K56.7 Ileus, unspecified; F17.210 Nicotine dependence, cigarettes, uncomplicated; R39.11 Hesitancy of micturition; H91.10 Presbycusis, unspecified ear; D64.9 Anemia, unspecified; F19.10 Other psychoactive substance abuse, uncomplicated; L98.499 Non-pressure chronic ulcer of skin of other sites with unspecified severity; Z20.822 Contact with and (suspected) exposure to COVID-19; Z96.649 Presence of unspecified artificial hip joint; Z68.22 Body mass index [BMI] 22.0-22.9, adult; Z90.49 Acquired absence of other specified parts of digestive tract; Z98.890 Other specified postprocedural states
CPT/HCPCS: 36415; 36416; 71045; 71260; 74018; 74019; 74022; 74250; 80048; 80053; 82378; 83735; 84100; 85025; 86803; 86850; 86900; 86901; 87389; 88309; 97139; C1713; C1776; C9113; J1100; J1170; J1650; J1885; J1940; J2001; J2250; J2270; J2272; J2370; J2405; J2543; J2550; J2704; J3010; J3475; J3480; J3490; J7050; J7120; Q9963; Q9967

== ENCOUNTER 2023-05-02 08:53 | Outpatient (CLI) | payer MEDICARE, OTHER | END 2023-05-02 08:54 | disposition home or self-care (01) | LOC: NM 08:53 | PROVIDERS: ATTEND Internal Medicine Hematology & Oncology | DX: C18.7 Malignant neoplasm of sigmoid colon (principal); M89.9 Disorder of bone, unspecified | CPT/HCPCS: 78306; A9503 ==

== ENCOUNTER 2023-07-11 10:33 | Outpatient (CLI) | payer MEDICARE, MEDICAID | END 2023-07-11 10:34 | disposition home or self-care (01) | LOC: RAD 10:33 | PROVIDERS: ATTEND Surgery | DX: Z48.815 Encounter for surgical aftercare following surgery on the digestive system (principal); Z93.3 Colostomy status | CPT/HCPCS: 74280 ==

== ENCOUNTER 2023-07-22 14:28 | Outpatient (CLI) | payer MEDICARE, OTHER ==
[2023-07-22 15:21] LABS: Hematocrit 44.7 % (38.8-50.0); Hemoglobin 14.9 g/dL (13.5-17.5); Mean Corpuscular HGB CONC 33.3 g/dL (32.0-36.0); Mean Corpuscular Hemoglobin 29.7 pg (27.0-33.0); Mean Platelet Volume 9.7 fl (7.4-10.4); Platelet Count 231 10x3/uL (150-450); RBC Distribution Width 14.3 % (11.5-14.5); Red Blood Cell (RBC) Count 5.02 10x6/uL (4.32-5.72); White Blood Cell (WBC) Count 6.1 10x3/uL (3.5-10.5)
[2023-07-22 15:39] LABS: Anion Gap 13 mmol/L (10-20); BUN (Urea Nitrogen) 14 mg/dL (8.4-25.7); Calc. Creatinine Clearance 0 mL/min (70-130); Calcium 9.5 mg/dL (7.8-10.44); Carbon Dioxide 26 mmol/L (23-31); Chloride 106 mmol/L (98-107); Estimated GFR 95; Glucose 67 mg/dL (80-115); Potassium 4.3 mmol/L (3.5-5.1); Sodium 141 mmol/L (136-145)
== END 2023-07-22 14:29 | disposition home or self-care (01) ==
LOC: LABBT 14:28
PROVIDERS: ATTEND Surgery
DX: Z01.818 Encounter for other preprocedural examination (principal); C18.9 Malignant neoplasm of colon, unspecified; Z93.3 Colostomy status
CPT/HCPCS: 80048; 85027; 93005; 93010

== ENCOUNTER 2023-07-28 06:00 | Inpatient (IN) | payer MEDICARE, MEDICAID ==
[2023-07-22 11:31] VITALS: BMI 23.1
[2023-07-28] MEDS ORDERED: Rocuronium Bromide 10 MG/ML (10ML VIAL) ONE ×2 (06:56→07:43)
[2023-07-28] MEDS ORDERED: PROPOFOL 20 ML ONE (06:56)
[2023-07-28] MEDS ORDERED: fentaNYL PF 100 MCG/2 ML SYRINGE ONE ×3 (06:56→13:40)
[2023-07-28] MEDS ORDERED: Lidocaine 1% PF 5 ML VIAL ONE ×2 (06:56→07:43)
[2023-07-28 07:11] LABS: Hemoglobin A1c 5.8 % (4.0-6.0)
[2023-07-28] MEDS ORDERED: EPINEPHrine 1 MG/ML VIAL ONE (07:29)
[2023-07-28] MEDS ORDERED: cefOXitin 2 GM VIAL ONE ×3 (07:29→10:30)
[2023-07-28] MEDS ORDERED: Bupivacaine 0.25% HCL 30 ML VIAL ONE ×2 (07:29→07:50)
[2023-07-28] MEDS ORDERED: Sodium Chloride 0.9% 100 ML ONE (07:29)
[2023-07-28] MEDS ORDERED: hydrALAZINE 20 MG/ML VIAL SLOW IVP PRN (07:40)
[2023-07-28] MEDS ORDERED: Morphine 2 MG/ML VIAL SLOW IVP PRN (07:40)
[2023-07-28] MEDS ORDERED: Promethazine HCl 25 MG/ML VIAL IM PRN ×2 (07:40→12:18)
[2023-07-28] MEDS ORDERED: Ondansetron PF 4 MG/2 ML Vial IVP PRN (07:40)
[2023-07-28] MEDS ORDERED: Ipratropium/Albuterol 3 ML NEB NEB PRN (07:40)
[2023-07-28] MEDS ORDERED: Ketorolac Tromethamine 30 MG/ML VIAL ONE ×2 (07:43→11:53)
[2023-07-28] MEDS ORDERED: PROPOFOL 200 MG/20 ML VIAL ONE (07:43)
[2023-07-28] MEDS ORDERED: Dexamethasone 20 MG/5 ML VIAL ONE ×2 (07:43→07:58)
[2023-07-28] MEDS ORDERED: Ondansetron PF 4 MG/2 ML Vial ONE ×2 (07:43→11:53)
[2023-07-28] MEDS ORDERED: ePHEDrine Sulfate 50 MG/10 ML VIAL ONE ×2 (07:43→08:22)
[2023-07-28] MEDS ORDERED: PHENYLEPHRINE-NS 100 MCG/ML 10 ML SYRINGE ONE ×2 (07:43→07:59)
[2023-07-28] MEDS ORDERED: Sevoflurane 250 ML INH ANEST BOTTLE ONE (07:55)
[2023-07-28] MEDS ORDERED: SUGAMMADEX SODIUM 200 MG/2 ML VIAL ONE (11:53)
[2023-07-28] MEDS ORDERED: Ondansetron HCl/PF 4 MG/2 ML Vial IVP PRN (12:18)
[2023-07-28] MEDS: Famotidine 20 MG TAB PO SCH ×2 (16:00→20:24)
[2023-07-28] MEDS: Ketorolac Tromethamine 30 MG/ML VIAL IVP SCH ×3 (16:01→23:58)
[2023-07-28] MEDS: cefOXitin 2 GM in Sodium Chloride 0.9% 100 ML IVPB SCH (16:31)
[2023-07-28] MEDS: D5 1/2 NS w/20 mEq KCL 1,000 ML IV SCH ×2 (16:32)
[2023-07-28] MEDS ORDERED: Sodium Chloride 0.9% 1,000 ML IV SCH (20:15)
[2023-07-29] MEDS: cefOXitin 2 GM in Sodium Chloride 0.9% 100 ML IVPB SCH
[2023-07-29] MEDS: D5 1/2 NS w/20 mEq KCL 1,000 ML IV SCH ×3 (05:48→17:54)
[2023-07-29] MEDS: Ketorolac Tromethamine 30 MG/ML VIAL IVP SCH ×4 (05:52→23:12)
[2023-07-29] MEDS: Polyethylene Glycol 3350 17 GM Packet PO SCH (09:05)
[2023-07-29] MEDS: Famotidine 20 MG TAB PO SCH ×2 (09:05→20:38)
[2023-07-29] MEDS: HYDROcodone/Acetaminophen 7.5/325 mg Tablet PO PRN ×2 (09:06→20:40)
[2023-07-30] MEDS: D5 1/2 NS w/20 mEq KCL 1,000 ML IV SCH ×2 (01:41→11:52)
[2023-07-30] MEDS: Ketorolac Tromethamine 30 MG/ML VIAL IVP SCH ×2 (05:09→12:09)
[2023-07-30] MEDS: Famotidine 20 MG TAB PO SCH (09:21)
[2023-07-30] MEDS: Polyethylene Glycol 3350 17 GM Packet PO SCH (09:22)
[2023-07-30 15:52] VITALS: BP 136/91; TEMP 97.7
[2023-07-31] MEDS ORDERED: FLU VACC QS2023(65UP)/MF59C/PF 60 MCG/0.5 ML SYRINGE IM ONE (09:00)
== END 2023-07-30 16:30 | disposition home or self-care (01) | DRG 331 ==
LOC: SURG A 06:00 → EDSTATUS 15:37 → SJJU 15:48
PROVIDERS: ADMIT Surgery; ATTEND Surgery
PROC: 0DBN4ZZ Excision of Sigmoid Colon, Percutaneous Endoscopic Approach (ICD-10-PCS; principal; 2023-07-28)
PROC: 0DNN4ZZ Release Sigmoid Colon, Percutaneous Endoscopic Approach (ICD-10-PCS; 2023-07-28)
PROC: 0WQF4ZZ Repair Abdominal Wall, Percutaneous Endoscopic Approach (ICD-10-PCS; 2023-07-28)
PROC: 8E0W4CZ Robotic Assisted Procedure of Trunk Region, Percutaneous Endoscopic Approach (ICD-10-PCS; 2023-07-28)
DX: C18.7 Malignant neoplasm of sigmoid colon (principal); K43.9 Ventral hernia without obstruction or gangrene
CPT/HCPCS: 36416; 83036; 88304; 88305; C1776; J0171; J0694; J1100; J1650; J1885; J2272; J2405; J2704; J3480; J3490; J7050; S0020

== ENCOUNTER 2024-09-03 12:36 | Outpatient (CLI) | payer MEDICARE ==
[~2024-09-03 12:36] MED LIST: Iopamidol 370 76% 100 ML VIAL ONE
== END 2024-09-03 12:37 | disposition home or self-care (01) ==
LOC: BICCT 12:36
PROVIDERS: ATTEND Internal Medicine Hematology & Oncology
DX: C18.9 Malignant neoplasm of colon, unspecified (principal); Z98.890 Other specified postprocedural states
CPT/HCPCS: 36415; 71260; 74177; 82565